=== PATIENT | male | born 1980 | race Caucasian/White ===

== ENCOUNTER 2016-11-17 15:11 | Emergency (ER) | payer MEDICARE | END 2016-11-17 15:56 | disposition home or self-care (01) | LOC: ER1 15:11 | DX: S81.012A Laceration without foreign body, left knee, initial encounter (principal); F17.210 Nicotine dependence, cigarettes, uncomplicated; Z88.2 Allergy status to sulfonamides; W27.8XXA Contact with other nonpowered hand tool, initial encounter | CPT/HCPCS: 12031; 29505; 90471; 99283 ==